=== PATIENT | female | born 1975 | race Caucasian/White ===

== ENCOUNTER 2021-04-02 21:03 | Emergency (ER) | payer OTHER ==
[~2021-04-02] VITALS: Ht 170.2 cm; Wt 77.1 kg
[~2021-04-02 21:03] MED LIST: CLORAZEPATE DI7.5 M1 PO; HYDROCODON-ACE1 EAC4 PO
[2021-04-02 21:06] VITALS: BP 127/72
[2021-04-02] MEDS ORDERED: METHOCARBAMOL500 M2 PO (22:16)
[2021-04-03] MEDS ORDERED: XANAX XR2 MG PO (15:09)
== END 2021-04-02 22:00 | disposition home or self-care (01) ==
LOC: ER 21:03
DX: S16.1XXA Strain of muscle, fascia and tendon at neck level, initial encounter (principal); S20.212A Contusion of left front wall of thorax, initial encounter; S70.12XA Contusion of left thigh, initial encounter; S70.11XA Contusion of right thigh, initial encounter; S09.8XXA Other specified injuries of head, initial encounter; M54.5 Low back pain; W18.09XA Striking against other object with subsequent fall, initial encounter; Y93.89 Activity, other specified; Y92.89 Other specified places as the place of occurrence of the external cause; Y99.8 Other external cause status

== ENCOUNTER 2021-04-03 14:30 | Emergency (ER) | payer OTHER ==
[~2021-04-03] VITALS: Ht 170.2 cm; Wt 72.6 kg
[~2021-04-03 14:30] MED LIST changes: +METHOCARBAMOL500 M2 PO
[2021-04-03] MEDS ORDERED: XANAX XR2 MG PO (15:09)
[2021-04-03 17:18] VITALS: BP 95/62
== END 2021-04-03 17:18 | disposition home or self-care (01) ==
LOC: ER 14:30
DX: S39.012A Strain of muscle, fascia and tendon of lower back, initial encounter (principal); W17.89XA Other fall from one level to another, initial encounter; Y93.89 Activity, other specified; Y92.89 Other specified places as the place of occurrence of the external cause; Y99.8 Other external cause status; Z98.890 Other specified postprocedural states